=== PATIENT | female | born 1995 | race Caucasian/White ===

== ENCOUNTER 2017-08-11 19:08 | Emergency (ER) | payer OTHER ==
[~2017-08-11] VITALS: Ht 170.2 cm; Wt 89.4 kg
[~2017-08-11 19:08] MED LIST: ALBUTEROL SULF8.5 GM IH; ALPRAZOLAM0.25 M2 PO; ESCITALOPRAM OX20 MG PO; NAPROSYN500 MG PO; NOHOMEMEDS; PREDNISONE10 MG PO; PROAIR HFA8.5 GM IH; TESSALON200 MG PO; TOPIRAMATE ER25 MG PO; TORADOL10 MG PO; ULTRAM50 MG PO; ZITHROMAX Z-PA250 MG PO
[2017-08-11 19:57] LABS: HEMATOCRIT 36.6 % (36.0-46.0); MCH 30.9 PG (29.0-34.0); MCHC 33.6 G/DL (30.0-36.0); MEAN PLAT.VOLUME 10.7 uM^3 (9.5-12.4); PLATELET COUNT 245 K/uL (156-360); RBC DIS.WIDTH-CV 12.7 % (11.8-14.6); RED BLOOD COUNT 3.98 M/uL (3.80-5.20); WHITE BLOOD COUNT 16.9 K/uL (4.1-10.2)
[2017-08-11 20:05] LABS: CHLORIDE 107 mEq/L (99-109); POTASSIUM 4.3 mEq/L (3.7-5.4); SODIUM 136 mEq/L (136-147)
[2017-08-11 20:07] LABS: GLUCOSE 91 mg/dL (70-99)
[2017-08-11 20:08] LABS: ANION GAP 7 MEQ/L (2-14)
[2017-08-11 20:11] LABS: GFR ESTIMATE (CALCULATED) > 59 mL/min/
[2017-08-11 20:12] LABS: UREA NITROGEN (BUN) 4 mg/dL (9-23)
[2017-08-11 20:17] LABS: TROP-I INTERPRETATION NEGATIVE; TROPONIN-I < 0.01 ng/mL (0.0-0.30)
[2017-08-11] MEDS ORDERED: NEBULIZER MC (21:00)
[2017-08-11] MEDS ORDERED: PROVENTIL,2.5 MG/3 M IH (21:00)
[2017-08-11 22:59] VITALS: BP 120/67
== END 2017-08-11 23:00 | disposition home or self-care (01) ==
LOC: EME 19:08
DX: O99.512 Diseases of the respiratory system complicating pregnancy, second trimester (principal); J45.909 Unspecified asthma, uncomplicated; Z3A.20 20 weeks gestation of pregnancy; O99.332 Smoking (tobacco) complicating pregnancy, second trimester; F17.200 Nicotine dependence, unspecified, uncomplicated
CPT/HCPCS: 71020; 80048; 84484; 85027; 93005; 94640; 99281; 99283

== ENCOUNTER 2017-12-10 16:55 | Outpatient (CLI) | payer OTHER ==
[~2017-12-10] VITALS: Ht 170.2 cm; Wt 95.9 kg
[~2017-12-10 16:55] MED LIST changes: +NEBULIZER MC; +PROVENTIL,2.5 MG/3 M IH
[2017-12-10 17:20] VITALS: BP 130/61
[2017-12-10 19:23] VITALS: BP 121/63
[2017-12-10 22:55] VITALS: BP 125/56
[2017-12-11 03:00] VITALS: BP 122/58
[2017-12-11 05:54] VITALS: BP 97/46
[2017-12-11 08:52] VITALS: BP 106/51
[2017-12-11 11:50] VITALS: BP 118/59
[2017-12-11 15:09] VITALS: BP 106/49
[2017-12-11 15:43] LABS: AMPHETAMINE NEGATIVE (500 ng/mL); BARBITURATES NEGATIVE (200 ng/mL); BENZODIAZEPINES NEGATIVE (150 ng/mL); BUPRENORPHINE NEGATIVE (10 ng/mL); COCAINE NEGATIVE (150 ng/mL); METHADONE NEGATIVE (200 ng/mL); METHAMPHETAMINE NEGATIVE (500 ng/mL); OPIATES (MORPHINE) NEGATIVE (100 ng/mL); OXYCODONE NEGATIVE (100 ng/mL); PHENCYCLIDINE NEGATIVE (25 ng/mL); PROPOXYPHENE NEGATIVE (300 ng/mL); THC CANNABINOIDS NEGATIVE (50 ng/mL); TRICYCLIC ANTIDEPRESSANTS NEGATIVE (300 ng/mL)
== END 2017-12-11 17:35 | disposition home or self-care (01) ==
LOC: LDRP-OP → 2WEST 16:56 → LDRP-OP 02-02 11:44
PROVIDERS: Advanced Practice Midwife
DX: O76 Abnormality in fetal heart rate and rhythm complicating labor and delivery (principal); O99.333 Smoking (tobacco) complicating pregnancy, third trimester; F17.200 Nicotine dependence, unspecified, uncomplicated; Z3A.37 37 weeks gestation of pregnancy
CPT/HCPCS: 59025; 76818; G0378

== ENCOUNTER 2017-12-23 15:57 | Inpatient (IN) | payer OTHER ==
[~2017-12-23] VITALS: Ht 170.2 cm; Wt 97.1 kg
[2017-12-23 16:32] VITALS: BP 132/71
[2017-12-23 16:36] VITALS: BP 138/71
[2017-12-23 17:22] LABS: BASOPHIL (%) 0.2 % (0-1); EOSINOPHIL (%) 1.1 % (0-5); EOSINOPHIL COUNT 0.1 K/uL (0-0.3); HEMATOCRIT 37.4 % (36.0-46.0); HEMOGLOBIN 12.5 G/DL (11.9-15.5); IMMATURE GRANULOCYTE (%) 0.9 % (0.0-0.7); LYMPHOCYTE (%) 15.4 % (15-42); MCH 30.9 PG (29.0-34.0); MCHC 33.4 G/DL (30.0-36.0); MCV 92.6 FL (83-99); MONOCYTE (%) 5.8 % (3-12); MONOCYTE COUNT 0.7 K/uL (0-0.8); NEUTROPHIL (%) 76.6 % (45-76); NEUTROPHIL COUNT 9.8 K/uL (1.8-6.4); PLATELET COUNT 266 K/uL (156-360); RBC DIS.WIDTH-CV 12.3 % (11.8-14.6); RBC DIS.WIDTH-SD 42.1 % (39-53); RED BLOOD COUNT 4.04 M/uL (3.80-5.20); WHITE BLOOD COUNT 12.8 K/uL (4.1-10.2)
[2017-12-23 19:10] VITALS: BP 140/69
[2017-12-23 22:46] VITALS: BP 143/71
[2017-12-24 01:12] VITALS: BP 110/51
[2017-12-24 05:45] VITALS: BP 109/55
[2017-12-24 06:43] LABS: BASOPHIL (%) 0.2 % (0-1); EOSINOPHIL (%) 0.6 % (0-5); EOSINOPHIL COUNT 0.1 K/uL (0-0.3); HEMATOCRIT 34.3 % (36.0-46.0); HEMOGLOBIN 11.4 G/DL (11.9-15.5); IMMATURE GRANULOCYTE (%) 0.8 % (0.0-0.7); LYMPHOCYTE (%) 13.2 % (15-42); LYMPHOCYTE COUNT 2.6 K/uL (1.0-2.8); MCH 31.6 PG (29.0-34.0); MCHC 33.2 G/DL (30.0-36.0); MONOCYTE (%) 4.9 % (3-12); NEUTROPHIL (%) 80.3 % (45-76); NEUTROPHIL COUNT 15.5 K/uL (1.8-6.4); PLATELET COUNT 232 K/uL (156-360); RBC DIS.WIDTH-CV 12.5 % (11.8-14.6); RBC DIS.WIDTH-SD 43.8 % (39-53); RED BLOOD COUNT 3.61 M/uL (3.80-5.20); WHITE BLOOD COUNT 19.3 K/uL (4.1-10.2)
[2017-12-24 07:40] VITALS: BP 134/57
[2017-12-24 10:48] VITALS: BP 114/59
[2017-12-24 15:45] VITALS: BP 122/60
[2017-12-24 23:45] VITALS: BP 98/48
[2017-12-25 07:29] VITALS: BP 137/68
[2017-12-25] MEDS ORDERED: IBUPROFEN800 MG PO (09:32)
[2017-12-25] MEDS ORDERED: ENDOCET 5-3251 EACH PO (09:32)
[2017-12-25 14:25] VITALS: BP 126/58
== END 2017-12-25 16:00 | disposition home or self-care (01) | DRG 765 ==
LOC: LDRP-OP 15:57 → 2WEST 15:59 → LDRP-OP 01-26 21:09
PROVIDERS: Advanced Practice Midwife; Obstetrics & Gynecology Obstetrics
PROC: 10D00Z1 Extraction of Products of Conception, Low, Open Approach (ICD-10-PCS; principal; 2017-12-23)
DX: O36.5930 Maternal care for other known or suspected poor fetal growth, third trimester, not applicable or unspecified (principal); O69.82X0 Labor and delivery complicated by other cord entanglement, without compression, not applicable or unspecified; O99.214 Obesity complicating childbirth; E66.9 Obesity, unspecified; D62 Acute posthemorrhagic anemia; O99.344 Other mental disorders complicating childbirth; O76 Abnormality in fetal heart rate and rhythm complicating labor and delivery; O69.1XX0 Labor and delivery complicated by cord around neck, with compression, not applicable or unspecified; F41.9 Anxiety disorder, unspecified; O99.02 Anemia complicating childbirth; Z3A.39 39 weeks gestation of pregnancy; Z37.0 Single live birth
CPT/HCPCS: 85025; 86850; 86900; 86901; J0690; J1885; J2270; J2274; J2405; J2590; J2765; J7120